=== PATIENT | female | born 1995 | race Caucasian/White ===

== ENCOUNTER 2016-05-14 06:48 | Emergency (ER) | payer OTHER, BC ==
[~2016-05-14] VITALS: Ht 175.3 cm; Wt 68.0 kg
[2016-05-14 06:51] VITALS: BP 112/72; PULSE 100; RESP 18; TEMP 98; O2SAT 99
[2016-05-14 06:57] VITALS: BP 117/68; PULSE 98; RESP 16; O2SAT 99
[2016-05-14 07:00] VITALS: RESP 16; O2SAT 97
[2016-05-14] MEDS ORDERED: SODIUM CHLORIDE 0.9% FLUSH 10 ML FLUSH IV FLUSH PRN (07:30)
[2016-05-14] MEDS ORDERED: diphenhydrAMINE HCL 50 MG/ML VIAL IVP ONE (07:30)
[2016-05-14] MEDS ORDERED: methylPREDNISolone SOD SUCC 125 MG/2 ML VIAL IVP ONE (07:30)
[2016-05-14] MEDS ORDERED: BENA25TA3 PO (08:06)
[2016-05-14] MEDS ORDERED: PRED20 PO (08:06)
--- NOTE | 2016-05-14 08:06 | PD ---
HPI Chief Complaint: Allergic/Adverse Reaction Time Seen by Provider: 07:15 Travel History International Travel<30 days: Yes Contact w/Intl Traveler<30days: Yes Name of Country Traveled to: [place]/16 Traveled to known affect area: Yes History of Present Illness HPI 20-year-old female came to the emergency room with history of an allergic reaction that started since 5 AM. Patient thinks that it could be strawberries that she ate although she has eaten strawberries in the past without any allergic reaction. She cannot think of anything new that she took that may have caused this. Her parents are here with her. Mother was concerned about her airway since its her lips that was swollen. Patient says she has no difficulty breathing except feels a little congested nasally. Vital signs were stable. She does not appear to be in any distress per se. No rash or itching. She is otherwise a healthy person. She is a student at [employer] [facility] Past Medical History Narrative Medical List of her past medical, surgical, social and family history was reviewed from the nursing note. Medical History: Denies Significant Hx Diminished Hearing: No Tetanus Vaccination: Unknown ?: Not LMP: UNKNOWN Past Surgical History Surgical History: No Previous Surgery Social History Alcohol Use: No Tobacco Use: No Substance Use: No Allergies-Medications (Allergen,Severity, Reaction): Coded Allergies: Bee Sting (Verified Allergy, Mild, Swelling, 05/14/16) Comments List of her allergies reviewed from the nursing note. Reported Meds & Prescriptions Reported Meds & Active Scripts Active Prednisone 20 Mg Tab 20 Mg PO BID 3 Days Benadryl Allergy (Diphenhydramine HCl) 25 Mg Tab 25 Mg PO Q6H PRN 3 Days Narrative Medication List of her home medications reviewed from the nursing note. Review of Systems Except as stated in HPI: all other systems reviewed are Neg Physical Exam Narrative GENERAL: Awake, alert, no obvious distress SKIN: Warm and dry. HEAD: Atraumatic. Normocephalic. EYES: Pupils equal and round. No scleral icterus. No injection or drainage. ENT: No nasal bleeding or discharge. Mucous membranes pink and moist. Upper and lower lip swollen with angioedema. Tonsillar adenopathy. No swelling of her tongue. No stridor NECK: Trachea midline. No JVD. CARDIOVASCULAR: Regular rate and rhythm. No murmur appreciated. RESPIRATORY: No accessory muscle use. Clear to auscultation. Breath sounds equal bilaterally. GASTROINTESTINAL: Abdomen soft, non-tender, nondistended. Hepatic and splenic margins not palpable. MUSCULOSKELETAL: No obvious deformities. No clubbing. No cyanosis. No edema. NEUROLOGICAL: Awake and alert. No obvious cranial nerve deficits. Motor grossly within normal limits. Normal speech. PSYCHIATRIC: Appropriate mood and affect; insight and judgment normal. Data Data Last Documented VS Orders Ecg Monitoring (05/14/16 07:21) Iv Access Insert/Monitor (05/14/16 07:21) Oximetry (05/14/16 07:21) Diphenhydramine Inj (Benadryl Inj) (05/14/16 07:30) Methylprednisolone So Succ Inj (Solumedr (05/14/16 07:30) Sodium Chloride 0.9% Flush (Ns Flush) (05/14/16 07:30) MDM Medical Decision Making Medical Screen Exam Complete: Yes Emergency Medical Condition: Yes Medical Record Reviewed: Yes Differential Diagnosis Allergic reaction, angioedema Narrative Course 8:02 AM patient was given IV Benadryl and IV Solu-Medrol. I will reassess her in a bit. If the swelling does not worsen patient will be discharged home after 2 hours of observation. Because of no airway involvement I chose not to give her any epinephrine. Patient will be discharged home on prescriptions. Procedures EKG Prior to Arrival: No Diagnosis Primary Impression: Allergic reaction Qualified Code: T78.40XA - Allergic reaction, initial encounter Additional Impression: Angioedema Qualified Code: T78.3XXA - Angioedema, initial encounter Referrals: Primary Care Physician 3 days Additional Instructions: Please follow-up with your primary care in couple days so that a referral to an medicare insurance specialist could be given. Take the medications as per the prescription direction. Do not drive while on Benadryl since it'll make you groggy. Please return to the ER if the condition worsens or any other new concerns. Med/Other Pt SpecificInfo: Prescription(s) given Scripts Prednisone 20 Mg Tab20 Mg PO BID 3 Days Ref 0 Prov:Arcadio Santana MD 05/14/16 Diphenhydramine (Benadryl Allergy)25 Mg Tab25 Mg PO Q6H PRN (ALLERGIES) 3 Days Ref 0 Prov:Arcadio Santana MD 05/14/16 Disposition: 01 DISCHARGE HOME Condition: Stable Arcadio Santana MD May 14, 2016 08:06 Scripts Prednisone 20 Mg Tab20 Mg PO BID 3 Days Ref 0 Prov:Arcadio Santana MD 05/14/16 Diphenhydramine (Benadryl Allergy)25 Mg Tab25 Mg PO Q6H PRN (ALLERGIES) 3 Days Ref 0 Prov:Arcadio Santana MD 05/14/16 Disposition: 01 DISCHARGE HOME Condition: Stable Arcadio Santana MD May 14, 2016 08:06
== END 2016-05-14 09:44 | disposition home or self-care (01) ==
LOC: NEPE 06:48
DX: T78.40XA Allergy, unspecified, initial encounter (principal); T78.3XXA Angioneurotic edema, initial encounter; X58.XXXA Exposure to other specified factors, initial encounter; R22.0 Localized swelling, mass and lump, head
CPT/HCPCS: 96374; 96375; 99283; J1200; J2930